=== PATIENT | female | born 1980 | race African-American/Black ===

== ENCOUNTER 2022-02-23 09:42 | Emergency (ER) | payer OTHER, SELFPAY ==
--- NOTE | ~2022-02-23 | CT_ITS ---
EXAMINATION: CT lumbar spine wo con DATE: 02/23/2022 12:08 INDICATION: Low back pain. TECHNIQUE: Computed tomography (CT) of the lumbar spine was performed without intravenous contrast. A utomated exposure control and iterative reconstruction technique were employed. The dose-length produ ct was 916.11 mGy-cm. 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 There is 8 degrees dextrocurvatur e of lumbar spine. Vertebral body heights are normal. There is mildly decreased disc height at L4-L5. The following disc levels are specifically discussed: L1-L2: The disc is bulging. There is mild bilateral facet joint osteoarthritis. There is no neural fo raminal stenosis. There is mild central canal stenosis. L2-L3: The disc is bulging. There is mild bilateral facet joint osteoarthritis. There is mild bilater al neural foraminal stenosis. There is mild central canal stenosis. L3-L4: The disc is bulging. There is mild bilateral facet joint osteoarthritis. There is mild bilater al neural foraminal stenosis. There is mild central canal stenosis. L4-L5: The disc is bulging. There is moderate bilateral facet joint osteoarthritis. There is mild ira ateral neural foraminal stenosis. There is mild central canal stenosis. L5-S1: The disc is bulging. There is moderate bilateral facet joint osteoarthritis. There is mild ira ateral neural foraminal stenosis. There is no central canal stenosis. IMPRESSION: 1. Mild lumbar spondylosis. Reviewed, dictated and finalized at location A. [employer] IMPRESSION: 1. Mild lumbar spondylosis.
[2022-02-23 09:38] VITALS: BP 150/104; PULSE 66; RESP 16; TEMP 36.6; O2SAT 100
--- NOTE | 2022-02-23 10:30 | ED.BACK ---
HPI - Back Pain/Injury General Chief Complaint: Back Pain/Injury Stated Complaint: back pain after heavy lifting Time Seen by Provider: 02/23/22 09:44 Source: patient Mode of arrival: EMS Limitations: no limitations History of Present Illness HPI Narrative: Patient is a 41-year-old female who presents the ED via EMS with report of back pain. Patient reports she was lifting heavy coin bags this morning, approximately 50 pounds, when she suddenly felt pain in her lower back with lifting. She states the pain was worse with any type of movement. She was only able to sit in certain positions due to the pain. EMS was called. She has not taken anything for the pain. Denies previous similar pain. Denies abdominal pain, nausea, vomiting, incontinence, weakness of legs, saddle anesthesia. Related Data Home Medications Medication Instructions Recorded Confirmed amlodipine 10 mg tablet mg 02/23/22 02/23/22 clonidine HCl 0.1 mg tablet mg 02/23/22 ergocalciferol (vitamin D2) 1,250 02/23/22 mcg (50,000 unit) capsule furosemide 20 mg tablet mg 02/23/22 hydralazine 25 mg tablet mg 02/23/22 hydrochlorothiazide 25 mg tablet mg 02/23/22 lisinopril 40 mg tablet mg 02/23/22 Allergies Allergy/AdvReac Type Severity Reaction Status Date / Time morphine AdvReac Itching Verified 02/23/22 09:48 Review of Systems Review of Systems: CONSTITUTIONAL: Denies fever, chills, or sweats. CARDIOVASCULAR: Denies chest pain. RESPIRATORY: Denies dyspnea. GASTROINTESTINAL: Denies abdominal pain, incontinence, nausea, vomiting, or diarrhea. GENITOURINARY: Denies incontinence, dysuria or hematuria. MUSCULOSKELETAL: Reports low back pain. Denies pain down BLE. NEUROLOGIC: Denies tingling, numbness, or weakness. All systems reviewed & are unremarkable except as noted in HPI and below PMFSH Past Medical History Medical History (Updated 02/23/22 @ 13:24 by Suyapa Smallwood PA-C) HLD (hyperlipidemia) HTN (hypertension) Surgical History Surgical History (Updated 02/23/22 @ 10:45 by Suyapa Smallwood PA-C) No pertinent past surgical history Social History Social History (Updated 02/23/22 @ 10:45 by Suyapa Smallwood PA-C) Smoking status: Never smoker Exam Narrative: GENERAL: Well appearing, obese, non-toxic, in no acute distress. HEAD: Normocephalic, atraumatic. NECK: Supple. No adenopathy, no masses. RESPIRATORY: Airway patent, respirations nonlabored. Clear to auscultation bilaterally, no rales, rhonchi, wheezing. CARDIOVASCULAR: Regular rate and rhythm without murmurs, rubs, or gallops. Peripheral pulses 2+ and equal bilaterally. ABDOMINAL: Soft, nontender, nondistended, no hepatosplenomegaly. Normoactive BS. MUSCULOSKELETAL: Moves all extremities. Strength/ROM intact without gross deformities. No cervical or thoracic midline spinal tenderness. Mild lower midline lumbar spinal tenderness with tenderness extending into R lumbosacral region. No palpable bony deformities or stepoffs. Sensation intact. SKIN: Warm, dry, normal color. No rashes. NEURO: A&O X3. Speech clear. Cranial nerves II-XII grossly intact. Steady gait. No ataxic movements. PSYCHIATRIC: Appropriate mood and affect. Normal interaction. Course Consultations Consultation #1: Discussed CT findings with nurse for patient's PCP, ASHANTI Engle, who will follow with patient. Date: 02/23/22 Vital Signs Vital signs: Vital Signs Temperature 97.9 F 02/23/22 09:38 Pulse Rate 66 02/23/22 09:38 Respiratory Rate 16 02/23/22 09:38 Blood Pressure 150/104 H 02/23/22 09:38 Pulse Oximetry 100 02/23/22 09:38 Oxygen Delivery Room Air 02/23/22 09:38 Temperature 97.9 F 02/23/22 09:38 Pulse Rate 66 02/23/22 09:38 Respiratory Rate 16 02/23/22 09:38 Blood Pressure 150/104 H 02/23/22 09:38 Pulse Oximetry 100 02/23/22 09:38 Oxygen Delivery Room Air 02/23/22 09:38 MDM - Back Pain/Injury MDM Narrative Medical decision
[2022-02-23] MEDS: diazePAM INJ (*CRX) 10 MG/2 ML SYRINGE 2 MG IV PUSH (10:59)
[2022-02-23] MEDS: KETOROLAC 30 MG/ML VIAL (*BKC) IV PUSH (11:01)
[2022-02-23] MEDS: CYCLOBENZAPRINE HCL 5 MG TABLET PO (14:01)
[2022-02-23 14:04] VITALS: BP 148/106; PULSE 66; RESP 18; O2SAT 100
== END 2022-02-23 14:05 | disposition home or self-care (01) ==
PROVIDERS: Emergency Provider Physician Assistant
DX: S39.012A Strain of muscle, fascia and tendon of lower back, initial encounter (principal); I72.2 Aneurysm of renal artery; M47.816 Spondylosis without myelopathy or radiculopathy, lumbar region; E78.5 Hyperlipidemia, unspecified; I10 Essential (primary) hypertension; X50.0XXA Overexertion from strenuous movement or load, initial encounter
CPT/HCPCS: 72131; 81025; 96365; 96375; 99284; A9270; J0131; J1885; J3360